=== PATIENT | male | born 1940 | race Caucasian/White ===

== ENCOUNTER 2017-01-02 19:16 | Emergency (ER) | payer MEDICARE ==
--- NOTE | 2017-01-02 19:57 | ERNOTE ---
Head Injury HPI - General Injury to: head Time Seen by Provider: 01/02/17 19:36 Source: patient Exam Limitations: no limitations - Immun/Allergies/Home Medications Immunization: IMMUNIZATION HX Immunizations Up to Date Yes History of Influenza Vaccine No Hx Pneumococcal Vaccination No Allergies/Adverse Reactions: Allergies Allergy/AdvReac Type Severity Reaction Status Date / Time allopurinol Allergy Mild Hives Verified 08/29/15 11:52 amoxicillin trihydrate Allergy Mild ITCHING, Verified 08/29/15 11:52 [From Augmentin] HIVES potassium clavulanate Allergy Mild ITCHING, Verified 08/29/15 11:52 [From Augmentin] HIVES tramadol AdvReac Intermediate SEVERE Verified 08/29/15 11:52 STOMACH PAIN glimepiride AdvReac Mild RASH Verified 08/29/15 11:52 pioglitazone HCl [From Actos] AdvReac Mild Itching Verified 08/29/15 11:52 sitagliptin phosphate AdvReac Mild Itching Verified 08/29/15 11:52 [From Januvia] Home Medications: HOME MEDICATIONS Cinnamon Bark [Cinnamon] 1,000 mg PO DAILY 10/22/14 [Last Taken 01/19/15] Gemfibrozil [Lopid] 600 mg PO BID 10/22/14 [Last Taken 02/07/15] Multivitamin [Multi-Vitamin Daily] 1 tab PO DAILY 02/07/15 [Last Taken 02/07/15] Chlorhex Gl/Isopropyl Alcohol [Hibiclens 4%] 1 appl TP MOWEFR PRN #0 btl [Last Taken Unknown] Cholecalciferol [Vitamin D] 2,000 unit PO DAILY capsule 05/16/15 [Last Taken Unknown] Cyanocobalamin [Vitamin B-12] 2,000 mcg PO DAILY tablet 05/16/15 [Last Taken Unknown] Digoxin [Lanoxin] 125 mcg PO MOWEFR #0 05/16/15 [Last Taken 02/07/15] Gabapentin 300 mg PO HS #0 05/16/15 [Last Taken 02/06/15] Furosemide [Lasix] 20 mg PO DAILY 07/31/15 [Last Taken Unknown] Hydrophilic Ointment [Aquaphilic Ointment] 1 appl TP DAILY 07/31/15 [Last Taken Unknown] Ibuprofen [Motrin] 600 mg PO Q6H PRN 07/31/15 [Last Taken Unknown] Insulin Lispro [Humalog] See Protocol SC AC 07/31/15 [Last Taken Unknown] Iron,Carbonyl/Ascorbic Acid [Vitron-C Tablet] 1 each PO MOWEFRSA 07/31/15 [Last Taken Unknown] Magnesium Oxide [Magnesium] 400 mg PO DAILY 07/31/15 [Last Taken Unknown] Blood Sugar Diagnostic, Drum [Accu-Chek Compact] 1 each MC DAILY 08/29/15 [Last Taken Unknown] Insulin Glargine,Hum.rec.anlog [Lantus] 56 units [facility] 01/02/17 [Last Taken Unknown] - History of Present Illness Narrative: Patient was using a walker and trying to carry groceries through a door that was closing, lost his balance and fell backwards hitting his head on the concrete side walk. He denies any loss of consciousness, needed help to get up. He has a mild headache, as well as pain in his right knee (which he describes as chronic) Occurred: just prior to arrival Location Occurred: home Severity: mild Head Injury Location: occipital Method of Injury: Reports: fell Reason for Fall: Reports: lost balance Loss of Consciousness: Reports: no loss of consciousness Associated Symptoms: Reports: denies symptoms Review of Systems - Review of Systems Constitutional: Absent: recent illness, fever EYE: Absent: vision changes ENT: Absent: nose congestion, sore throat Respiratory: Absent: shortness of breath, cough Cardiology: Absent: chest pain Gastrointestinal/Abdominal: Absent: nausea, vomiting, abdominal pain Musculoskeletal: Present: See HPI, joint pain. Absent: back pain, muscle pain Skin: Absent: rash Neurological: Present: See HPI. Absent: headache, weakness, numbness - Patient's Past Medical History Patient History - Medical: Diabetes Type 2 Insulin Dependent, Renal Failure, Other - subdural bleed after fall 2014 Patient History - Cardiac/Respiratory: Hypertension, Other Patient History - Cancer: No Hx of Cancer Patient History - Surgical Procedures: No surgical history Patient History - Other: None - Family History Mother Family History - Medical: - 52 Family History - Cardiac/Respiratory: Myocardial Infarction Father Family History - Medical: - 84 GI cancer - Social History Living Situations: alone Abuse History: No History of abuse Psych History: No pertinent hx Smoking Status: Former smoker Have you smoked in the past 12 months: No Do you dip or chew tobacco: No Alcohol Use: occasionally - one drink most nights Drug Use: none - Immunizations Immunizations Up to Date: Yes Hx Pneumococcal Vaccination: No History of Influenza Vaccine: No Physical Exam - Physical Exam General Appearance: Present: wd/wn, alert, no apparent distress Eye Exam: Normal inspection: bilateral, PERRL: bilateral Ears, Nose, Throat: Present: normal ENT inspection, normal pharynx, other - small 5mm laceration posterior scalp, currently not bleeding Respiratory: Present: no respiratory distress, normal breath sounds, no accessory muscle use, chest nontender, lungs clear Cardiovascular/Chest: Present: regular rate, rhythm, no murmur Gastrointestinal/Abdominal: Present: normal bowel sounds, nontender, nondistended, soft Back Exam: Present: normal inspection, normal range of motion, no CVA tenderness , no vertebral tenderness Extremity Exam: Present: normal except - - right knee tender to palpation anterior over patellar Neurological Exam: Present: alert, oriented, normal mood/affect, no motor/ sensory deficits Skin Exam: Present: normal color, warm/dry ED Progress - Vital Signs Patient's Vital Signs:: I have reviewed the patient's vital signs. Vital Signs: Vital Signs 01/02/17 19:18 Temperature 35.9 C L Pulse Rate 107 H Respiratory 18 Rate Blood Pressure 159/93 O2 Sat by Pulse 96 Oximetry - X-Ray X-Ray #1 X-Ray: knee - chronic, no acute changes Interpretation: Reviewed by me - CT/Ultrasound CT/Ultrasound Narrative: CT head: no acute findings - Progress/Reassessment Chief Complaint: Fall Progress Note-Subjective: 01/02/17 20:35 discussed results with patient Procedures Head Length of Repair/Wound (cm): 0.5 Wound's Depth/Shape: into subcutaneous Wound Explored: clean Wound Intervention: irrigated w/saline Distal NVT: neuro/vasc intact Wound Repaired With: Dermabond Departure Clinical Impression: Occipital scalp laceration Qualifiers: Encounter type: initial encounter Qualified Code(s): S01.01XA - Laceration without foreign body of scalp, initial encounter Head injury Qualifiers: Encounter type: initial encounter Qualified Code(s): S09.90XA - Unspecified injury of head, initial encounter Right knee sprain Qualifiers: Encounter type: initial encounter Involved ligament of knee: unspecified ligament Qualified Code(s): S83.91XA - Sprain of unspecified site of right knee , initial encounter - Departure Disposition: Home self-care Condition: Good Instructions: Tissue Adhesive Wound Care, [id number], Head Injury, Adult, [id number] Referrals: Antoinette Burns, [Associate] -
[2017-01-02 22:13] VITALS: BP 140/88
== END 2017-01-02 22:00 | disposition home or self-care (01) ==
LOC: ER 19:16
PROC: 0JQ00ZZ Repair Scalp Subcutaneous Tissue and Fascia, Open Approach (ICD-10-PCS; principal; 2017-01-02)
DX: S01.01XA Laceration without foreign body of scalp, initial encounter (principal); S09.90XA Unspecified injury of head, initial encounter; S83.91XA Sprain of unspecified site of right knee, initial encounter; E11.9 Type 2 diabetes mellitus without complications; Z79.4 Long term (current) use of insulin; I10 Essential (primary) hypertension; W18.39XA Other fall on same level, initial encounter; Z91.81 History of falling; Y93.89 Activity, other specified; Y92.007 Garden or yard of unspecified non-institutional (private) residence as the place of occurrence of the external cause; Y99.8 Other external cause status

== ENCOUNTER 2017-02-24 19:55 | Observation (INO) | payer MEDICARE ==
--- NOTE | 2017-02-24 21:11 | ERNOTE ---
Medical Problem HPI - Narrative Date of Service: 02/24/17 - General Chief Complaint: General Assessment Time Seen by Provider: 02/24/17 20:46 Source: patient Exam Limitations: no limitations - Immun/Allergies/Home Medications Immunizations: IMMUNIZATION HX Immunizations Up to Date Yes History of Influenza Vaccine No Hx Pneumococcal Vaccination No Allergies/Adverse Reactions: Allergies allopurinol Allergy (Mild, Verified 02/24/17 20:04) Hives amoxicillin trihydrate [From Augmentin] Allergy (Mild, Verified 02/24/17 20:04) ITCHING, HIVES potassium clavulanate [From Augmentin] Allergy (Mild, Verified 02/24/17 20:04) ITCHING, HIVES tramadol Adverse Reaction (Intermediate, Verified 02/24/17 20:04) SEVERE STOMACH PAIN glimepiride Adverse Reaction (Mild, Verified 02/24/17 20:04) RASH pioglitazone HCl [From Actos] Adverse Reaction (Mild, Verified 02/24/17 20:04) Itching sitagliptin phosphate [From Januvia] Adverse Reaction (Mild, Verified 02/24/17 20:04) Itching Home Medications: HOME MEDICATIONS Cinnamon Bark [Cinnamon] 1,000 mg PO DAILY 10/22/14 [Last Taken 01/19/15] Gemfibrozil [Lopid] 600 mg PO BID 10/22/14 [Last Taken 02/07/15] Multivitamin [Multi-Vitamin Daily] 1 tab PO DAILY 02/07/15 [Last Taken 02/07/15] Chlorhex Gl/Isopropyl Alcohol [Hibiclens 4%] 1 appl TP MOWEFR PRN #0 btl [Last Taken Unknown] Cholecalciferol [Vitamin D] 2,000 unit PO DAILY capsule 05/16/15 [Last Taken Unknown] Cyanocobalamin [Vitamin B-12] 2,000 mcg PO DAILY tablet 05/16/15 [Last Taken Unknown] Digoxin [Lanoxin] 125 mcg PO MOWEFR #0 05/16/15 [Last Taken 02/07/15] Gabapentin 300 mg PO HS #0 05/16/15 [Last Taken 02/06/15] Furosemide [Lasix] 20 mg PO DAILY 07/31/15 [Last Taken Unknown] Hydrophilic Ointment [Aquaphilic Ointment] 1 appl TP DAILY 07/31/15 [Last Taken Unknown] Ibuprofen [Motrin] 600 mg PO Q6H PRN 07/31/15 [Last Taken Unknown] Insulin Lispro [Humalog] See Protocol SC AC 07/31/15 [Last Taken Unknown] Iron,Carbonyl/Ascorbic Acid [Vitron-C Tablet] 1 each PO MOWEFRSA 07/31/15 [Last Taken Unknown] Magnesium Oxide [Magnesium] 400 mg PO DAILY 07/31/15 [Last Taken Unknown] Blood Sugar Diagnostic, Drum [Accu-Chek Compact] 1 each MC DAILY 08/29/15 [Last Taken Unknown] Insulin Glargine,Hum.rec.anlog [Lantus] 56 units [place] [facility] 01/02/17 [Last Taken Unknown] - History of Present History Narrative: Pt. comes in with c/o generalized weakness after grocery shopping at [employer] this afternoon. Pt. was brought in by EMS for LE weakness just prior to arrival. Pt. denies any recent illness fever, dizziness, CP, NVD, dysuria, or any new edema. Pt. has a hx of diabetes and CHF and states that he is slightly SOB at this time. Pt. denies falling with the weakness today or pain anywhere. Review of Systems - Review of Systems Constitutional: Present: weakness. Absent: fever, chills, fatigue, malaise EYE: Present: no symptoms reported ENT: Present: no symptoms reported Respiratory: Present: shortness of breath. Absent: cough, wheezing Cardiology: Present: no symptoms reported. Absent: chest pain, palpitations, edema Gastrointestinal/Abdominal: Present: no symptoms reported. Absent: nausea, vomiting, diarrhea, abdominal pain Genitourinary: Present: no symptoms reported. Absent: frequency, dysuria, hematuria Musculoskeletal: Present: no symptoms reported. Absent: back pain, joint pain Skin: Present: no symptoms reported. Absent: rash, change in hair/nails Neurological: Present: weakness. Absent: headache, dizziness/light-headedness, numbness, tingling All Other Systems: All systems neg except as marked - Patient's Past Medical History Patient History - Medical: Diabetes Type 2 Insulin Dependent, Renal Failure, Other Patient History - Cardiac/Respiratory: Hypertension, Other Patient History - Cancer: No Hx of Cancer Patient History - Surgical Procedures: No surgical history Patient History - Other: None - Family History Mother Family History - Medical: Family History - Cardiac/Respiratory: Myocardial Infarction Father Family History - Medical: - Social History Living Situations: home Abuse History: No History of abuse Psych History: No pertinent hx Smoking Status: Never smoker Alcohol Use: occasionally Drug Use: none - Immunizations Immunizations Up to Date: Yes Hx Pneumococcal Vaccination: No History of Influenza Vaccine: No Physical Exam - Physical Exam General Appearance: Present: wd/wn, alert, no apparent distress Eye Exam: Normal inspection: bilateral, PERRL: bilateral, EOMI: bilateral Ears, Nose, Throat: Present: normal ENT inspection, normal pharynx Neck: Present: normal inspection, nontender. Absent: lymphadenopathy (R), lymphadenopathy (L) Respiratory: Present: no respiratory distress, no accessory muscle use, chest nontender, decreased breath sounds. Absent: rales, rhonchi, wheezing Cardiovascular/Chest: Present: regular rate, rhythm, systolic murmur, other - weak PPP Gastrointestinal/Abdominal: Present: normal bowel sounds, nontender, soft, no organomegaly, distended. Absent: hernia Back Exam: Present: normal inspection, normal range of motion, no CVA tenderness , no vertebral tenderness Extremity Exam: Present: non-tender, normal range of motion, extremity edema - R +4 L +2 Neurological Exam: Present: alert, oriented, normal mood/affect, motor weakness - generalized with resistance Skin Exam: Present: cool/dry, pallor ED Progress - Date and Time Seen: Date and Time: 02/24/17 22:30 Discussed with Brittany and she agrees to accept for observation as pt. is still unexplainably weak. 02/24/17 22:33 - Results and Orders Patient's Lab Results:: I have reviewed the patient's lab results. - Vital Signs Patient's Vital Signs:: I have reviewed the patient's vital signs. Vital Signs: Vital Signs 02/24/17 19:59 Temperature 36.6 C Pulse Rate 98 Respiratory 20 Rate Blood Pressure 125/67 O2 Sat by Pulse 96 Oximetry - X-Ray X-Ray #1 X-Ray: chest Interpretation: Reviewed by me X-ray Comments: no acute - CT/Ultrasound CT/Ultrasound Narrative: CT head with disproportionately enlarged but not acute. - Progress/Reassessment Chief Complaint: General Assessment Progress:: Unchanged Departure - Departure Clinical Impression: Right-sided heart failure, Dehydration, Weakness Diabetes mellitus type 2, controlled Qualifiers: Diabetes mellitus complication status: without complication Diabetes mellitus halfway insulin use: with halfway use Qualified Code(s): E11.9 - Type 2 diabetes mellitus without complications; Z79.4 - termite exterminator (current) use of insulin Disposition: [facility] Condition: Fair
[2017-02-24 21:20] LABS: Hematocrit 34.7 % (42.0-52.0); Mean Cell Volume 85.5 fl (78-100); Mean Corpuscular Hemoglobin 29.6 pg (27-31); Mean Corpuscular Hgb Conc 34.6 g/dl (32-36); Mean Platelet Volume 9.9 fl (6.0-9.5); Neutrophil # 8.1 K/mm3 (1.3-6.0); Neutrophil % 85.8 % (42-75.0); Platelet Count 177 K/mm3 (150-450); Red Blood Count 4.06 M/mm3 (4.7-6.0); Red Cell Distribution Width 13.7 % (11.5-14.0); White Blood Count 9.5 K/mm3 (4.0-10.5)
[2017-02-24 21:28] LABS: Urine Bilirubin Negative (NEGATIVE); Urine Blood Negative /ul (NEGATIVE); Urine Ketone Negative (NEGATIVE); Urine Nitrite Negative (NEGATIVE); Urine Protein Negative (NEGATIVE); Urine Specific Gravity 1.015 SP.GR. (1.005-1.030); Urine Urobilinogen Normal (NORMAL)
[2017-02-24 21:36] LABS: Urine Appearance Clear; Urine Color Yellow
[2017-02-24 21:37] LABS: Urine Bacteria 1+; Urine RBC None Seen /hpf (0-5); Urine WBC None Seen /hpf (0-5)
[2017-02-24 21:42] LABS: ALT 22 U/L (19-67); AST 15 U/L (0-48); Albumin * 3.2 gm/dl (3.4-5.0); Alkaline Phosphatase * 45 U/L (50-170); Anion Gap 16.7 mmol/L (6.8-13.8); BNP * 286 pg/mL (5-650); BUN/Creatinine Ratio 28.9 (9.0-21.6); Bilirubin, Total 0.4 mg/dL (0.0-1.1); Blood Urea Nitrogen 26 mg/dL (6-23); Ca. Corrected For Albumin 9.7 mg/dL (8.4-10.2); Calcium * 9.4 mg/dL (7.9-10.9); Carbon Dioxide 25.5 mmol/L (24-32.6); Chloride 101 mmol/L (97-106); Glucose * 310 mg/dL (70-110); Potassium 4.2 mmol/L (3.4-4.6); Sodium 139 mmol/L (132-142); Total Protein 6.6 gm/dL (6.2-8.2)
[2017-02-24 21:43] LABS: Troponin I Less than 0.017 ng/ml (0.00-0.10)
[2017-02-24] MEDS ORDERED: NORMAL SALINE 1,000 ML IV ONE (21:46)
[2017-02-25 00:17] LABS: Cocaine Ur Negative (NEGATIVE); Urine Barbiturate Negative (NEGATIVE); Urine Benzodiazepines Negative (NEGATIVE); Urine Opiates Negative (NEGATIVE); Urine PCP Negative (NEGATIVE); Urine THC Negative (NEGATIVE)
[2017-02-25 01:01] LABS: Folate 12.1 ng/mL (8.6-58.9); TSH * 0.856 uIU/mL (0.358-3.74)
--- NOTE | 2017-02-25 01:11 | HP ---
Chief Complaint - Chief Complaint Date of Service: 02/24/17 Time of Service: 23:45 Chief Complaint: Weakness lower extremities History of Present Illness: 76 years old male adm to the hospital with reports of sudden onset of weakness to lower extremities. pt stated while at the grocery store parking lot, his legs got extremely weak making it hard for him to stand of walk. He leaned against his truck and as assisted by other customers who then called EMS. He denies alcohol use or drug use,slurred speech, blurred vision, headache, auditory changes, nausea, vomiting, vertigo or LOC. pt stated for the past year he has been using a powered chair and sometimes a walker while ambulating. He his currently been seen by chiropractor who diagnosed him with vertebral misalignment. He his schedule for out-pt physical therapy BID weekly. He have history of frequent falls, last incident was 2 months ago when he fell and hit his head. On this incident he denies head injury and had CT head done at the time. In ER CT head : No acute intra-cranial abnormality. Mild disproportionate ventricle enlargement, relative to the degree of cortical atrophy. EKG- NSR. PMH significant for frequent falls, diabetes, CHF, CKD, COPD, HDL and venous stasis. Plan of care discussed with pt he verbalized understanding and agrees. - Patient's Past Medical History Patient History - Medical: Diabetes Type 2 Insulin Dependent, Osteoarthritis, Renal Disease, Renal Failure, Other - venous stasis, obesity Patient History - Cardiac/Respiratory: CHF, COPD, Hypertension, Hyperlipidemia, Other Patient History - Cancer: No Hx of Cancer Patient History - Surgical Procedures: No surgical history Patient History - Other: None - Family History Mother Family History - Medical: Family History - Cardiac/Respiratory: Myocardial Infarction Father Family History - Medical: - Social History Living Situations: alone Abuse History: No History of abuse Psych History: No pertinent hx Smoking Status: Former smoker Have you smoked in the past 12 months: No Smoking Start Date: 02/26/1956 Smoking Stop Date: 02/25/71 Alcohol Use: occasionally Drug Use: none - Immunizations Immunizations Up to Date: Yes Hx Pneumococcal Vaccination: No History of Influenza Vaccine: No Review Of Systems (GEN) - Review of Systems Generalized/Overall Review: Present: Weakness - BLLE EENTM: Present: Other - Poor dentition Respiratory: Present: No Symptoms Reported Cardiac: Present: No Symptoms Reported Abdominal: Present: No Symptoms Reported Genitourinary: Present: Frequency Musculoskeletal: Present: Other - BLLE weakness Neurological: Present: Weakness Skin: Present: No Symptoms Reported Endocrine: Present: No Symptoms Reported Allergies/Adverse Reactions: Allergies Allergy/AdvReac Type Severity Reaction Status Date / Time allopurinol Allergy Mild Hives Verified 02/25/17 00:44 amoxicillin trihydrate Allergy Mild ITCHING, Verified 02/25/17 00:44 [From Augmentin] HIVES potassium clavulanate Allergy Mild ITCHING, Verified 02/25/17 00:44 [From Augmentin] HIVES tramadol AdvReac Intermediate SEVERE Verified 02/25/17 00:44 STOMACH PAIN glimepiride AdvReac Mild RASH Verified 02/25/17 00:44 pioglitazone HCl [From Actos] AdvReac Mild Itching Verified 02/25/17 00:44 sitagliptin phosphate AdvReac Mild Itching Verified 02/25/17 00:44 [From Januvia] Home Medications: HOME MEDICATIONS Cinnamon Bark [Cinnamon] 1,000 mg PO DAILY 10/22/14 [Last Taken 02/24/17] Gemfibrozil [Lopid] 600 mg PO BID 10/22/14 [Last Taken 02/07/15] Multivitamin [Multi-Vitamin Daily] 1 tab PO DAILY 02/07/15 [Last Taken 02/24/17] Chlorhex Gl/Isopropyl Alcohol [Hibiclens 4%] 1 appl TP MOWEFR PRN #0 btl [Last Taken Unknown] Cholecalciferol [Vitamin D] 2,000 unit PO DAILY capsule 05/16/15 [Last Taken Unknown] Digoxin [Lanoxin] 125 mcg PO MOWEFR #0 05/16/15 [Last Taken 02/07/15] Gabapentin 300 mg PO HS #0 05/16/15 [Last Taken 02/06/15] Furosemide [Lasix] 20 mg PO DAILY 07/31/15 [Last Taken Unknown] Hydrophilic Ointment [Aquaphilic Ointment] 1 appl TP DAILY 07/31/15 [Last Taken 02/24/17] Blood Sugar Diagnostic, Drum [Accu-Chek Compact] 1 each MC DAILY 08/29/15 [Last Taken 02/24/17] Insulin Glargine,Hum.rec.anlog [Lantus] 56 units SC QAM 01/02/17 [Last Taken 09/02] Insulin Aspart [Novolog] 18 units SC TID 02/25/17 [Last Taken 02/24/17 08:00] Exam - Exam Vital Signs: Vital Signs - Last Taken Temp 36.5 C 02/24/17 22:47 Pulse 97 02/24/17 22:47 Resp 22 H 02/24/17 22:47 BP 140/74 02/24/17 22:47 Pulse Ox 99 02/24/17 22:47 Constitutional: Present: Alert, Oriented x3, Cooperative, No distress, Elderly ENT Exam: Present: moist mucous membranes, other - poor dentition Eye Exam: bilateral eye: PERRL Neck: Present: full range of motion Back Exam: Present: normal inspection Respiratory: Present: chest non-tender, lungs clear Cardiovascular/Chest: Present: normal peripheral pulses, regular rate, rhythm, no chest tenderness, no gallop, tachycardia Peripheral Pulses: dorsalis-pedis (R): 2+, dorsalis-pedis (L): 2+ Abdomen: Present: Normal bowel sounds, soft, nontender, nondistended, no rebound tenderness /Rectal: Present: Exam deferred Extremity: Present: normal range of motion, non-tender, normal inspection Skin Exam: Present: normal color, warm/dry, no cyanosis Lymphatic: Present: no adenopathy Neurologic: Present: oriented x 3 Appearance: Present: appropriate appearance Eye contact: Present: cooperative, good eye contact Diagnostic Studies: Laboratory Results WBC 9.5 K/mm3 (4.0-10.5) 02/24/17 21:20 RBC 4.06 M/mm3 (4.7-6.0) L 02/24/17 21:20 Hgb 12.0 gm/dL (13.5-18.0) L 02/24/17 21:20 Hct 34.7 % (42.0-52.0) L 02/24/17 21:20 MCV 85.5 fl (78-100) 02/24/17 21:20 MCH 29.6 pg (27-31) 02/24/17 21:20 MCHC 34.6 g/dl (32-36) 02/24/17 21:20 RDW 13.7 % (11.5-14.0) 02/24/17 21:20 Plt Count 177 K/mm3 (150-450) 02/24/17 21:20 MPV 9.9 fl (6.0-9.5) H 02/24/17 21:20 Immature Gran % (Auto) 0.50 % (0.001-0.429) H 02/24/17 21:20 Immature Gran # (Auto) 0.05 K/mm3 (0.000-0.0310) H 02/24/17 21:20 Neutrophils % 85.8 % (42-75.0) H 02/24/17 21:20 Lymphocytes % 7.6 % (20-51) L 02/24/17 21:20 Monocytes % 6.0 % (0.0-9) 02/24/17 21:20 Eosinophils % 0.0 % (0.0-3.0) 02/24/17 21:20 Basophils % 0.1 % (0.0-1.0) 02/24/17 21:20 Nucleated RBC % 0.0 k/mm3 (0-1) 02/24/17 21:20 Neutrophils # 8.1 K/mm3 (1.3-6.0) H 02/24/17 21:20 Lymphocytes # 0.7 k/mm3 (1.5-3.5) L 02/24/17 21:20 Monocytes # 0.6 k/mm3 (0.0-1.0) 02/24/17 21:20 Eosinophils # 0.0 k/mm3 (0.0-0.7) 02/24/17 21:20 Absolute Basophils 0.0 k/mm3 (0.0-0.1) 02/24/17 21:20 Sodium 139 mmol/L (132-142) 02/24/17 21:20 Plasma Sodium 142 mmol/L (130-142) 02/24/17 21:20 Potassium 4.2 mmol/L (3.4-4.6) 02/24/17 21:20 Chloride 101 mmol/L (97-106) 02/24/17 21:20 Carbon Dioxide 25.5 mmol/L (24-32.6) 02/24/17 21:20 Anion Gap 16.7 mmol/L (6.8-13.8) H 02/24/17 21:20 BUN 26 mg/dL (6-23) H 02/24/17 21:20 Creatinine 0.90 mg/dL (0.4-1.4) 02/24/17 21:20 Est GFR (Non-Af Amer) 87 mL/min (60-130) 02/24/17 21:20 BUN/Creatinine Ratio 28.9 (9.0-21.6) H 02/24/17 21:20 Random Glucose 310 mg/dL (70-110) H 02/24/17 21:20 Lactic Acid, Venous 2.2 mmol/L (0.4-1.9) H* 02/24/17 21:20 Calcium 9.4 mg/dL (7.9-10.9) 02/24/17 21:20 Calcium Adj for Albumin 9.7 mg/dL (8.4-10.2) 02/24/17 21:20 Total Bilirubin 0.4 mg/dL (0.0-1.1) 02/24/17 21:20 AST 15 U/L (0-48) 02/24/17 21:20 ALT 22 U/L (19-67) 02/24/17 21:20 Alkaline Phosphatase 45 U/L (50-170) L 02/24/17 21:20 Troponin I Less than 0.017 ng/ml (0.00-0.10) 02/24/17 21:20 B-Natriuretic Peptide 286 pg/mL (5-650) 02/24/17 21:20 Total Protein 6.6 gm/dL (6.2-8.2) 02/24/17 21:20 Albumin 3.2 gm/dl (3.4-5.0) L 02/24/17 21:20 Urine Color Yellow 02/24/17 21:05 Urine Appearance Clear 02/24/17 21:05 Urine pH 6.0 pH (5.0-7.0) 02/24/17 21:05 Ur Specific [place] 1.015 SP.GR. (1.005-1.030) 02/24/17 21:05 Urine Protein Negative mg/dL (NEGATIVE) 02/24/17 21:05 Urine Glucose (UA) >=1000 mg/dL (NEGATIVE) H 02/24/17 21:05 Urine Ketones Negative mg/dL (NEGATIVE) 02/24/17 21:05 Urine Blood Negative /ul (NEGATIVE) 02/24/17 21:05 Urine Nitrate Negative (NEGATIVE) 02/24/17 21:05 Urine Bilirubin Negative mg/dl (NEGATIVE) 02/24/17 21:05 Urine Urobilinogen Normal EU/dl (NORMAL) 02/24/17 21:05 Ur Leukocyte Esterase Negative /ul (NEGATIVE) 02/24/17 21:05 Urine RBC None seen /hpf (0-5) 02/24/17 21:05 Urine WBC None seen /hpf (0-5) 02/24/17 21:05 Ur Epithelial Cells None seen /hpf (0-5) 02/24/17 21:05 Urine Bacteria 1+ (NONE) H 02/24/17 21:05 Urine Culture Comments Culture to follow 02/24/17 21:05 Urine Opiates Screen Negative (NEGATIVE) 02/24/17 23:57 Barbiturate Screen Negative (NEGATIVE) 02/24/17 23:57 Ur Phencyclidine Scrn Negative (NEGATIVE) 02/24/17 23:57 Urine Amphetamine Negative (NEGATIVE) 02/24/17 23:57 U Benzodiazepines Scrn Negative (NEGATIVE) 02/24/17 23:57 Urine Cocaine Screen Negative (NEGATIVE) 02/24/17 23:57 Urine Marijuana (THC) Negative (NEGATIVE) 02/24/17 23:57 Serum Ketones Negative (NEGATIVE) 02/24/17 21:20 Assessment/Plan - Narrative Narrative: Weakness to BLLE CRP/ ERS pending Follow up with Physical therapy and go for schedule appointments. Vit B12, ferritin pending Drug urine toxicology negative On adm Lactic acid 2.2--->1.2 Continue on telemetry On adm EKG- NSR Diabetes On adm BG 310 Accu-check and low dose SSI Consistent carb diet May resume home dose of medications COPD- stable Resume home hinson of medications Hypertension Resume home dose of medications Monitor vital signs daily and PRN as indicated CKD On adm BUN/ Cre 26/0.29, pt is at baseline CHF- stable Resume home dose of medication when meds list become available Code status: DNR, Jehovah witness no blood products VTE ppx; ambulate and SCD Anticipate discharge home 0-2 days Time 38 minutes and previous chart reviewed. - Assessment/Plan (1) Weakness Problem: Acute (2) Dehydration Problem: Acute (3) Diabetes mellitus type 2, controlled Problem: Chronic Qualifiers: Diabetes mellitus complication status: without complication Diabetes mellitus terminal supervisor insulin use: with terminal supervisor use Qualified Code(s): E11.9 - Type 2 diabetes mellitus without complications; Z79.4 - bed bug exterminator (current) use of insulin (4) Renal failure Problem: Chronic Qualifiers: Renal failure chronicity: chronic Chronic kidney disease stage: stage 3 ( moderate) Qualified Code(s): N18.3 - Chronic kidney disease, stage 3 (moderate )
[2017-02-25] MEDS ORDERED: ACETAMINOPHEN 325 MG TABLET PO PRN (08:54)
--- NOTE | 2017-02-25 13:01 | DS ---
(1) Fall from ground level Problem: Acute (2) Obesity Diagnosis(s): BMI-38.0 Problem: Chronic Qualifiers: Obesity type: unspecified obesity type (3) Diabetes type 2, uncontrolled Problem: Chronic Qualifiers: Diabetes mellitus complication status: with hyperglycemia Description of Stay: DATE OF ADMISSION: 02/25/2017. DATE OF DISCHARGE: 02/25/2017. DIAGNOSTICS: CT HEAD W/O: 02/24/2017. DISCHARGE SUMMARY: Adolph Ireland is a 76-year-old WM with a H/O HTN, HLD, PAF, T2DM, FLORA, OA, chronic lower extremity edema who apparently fell on his side while attempting to get into his truck w/o LOC on 02/24/2017. He was evaluated in the ER and underwent a CT of head W/O. Findings included age-related cortical atrophy and periventricular white matter chronic ischemic changes; mild disproportionate ventricular enlargement related to the degree of cortical atrophy [correlate for NPH]; trace LT mastoid air cell effusion; posterior scalp soft tissue swelling. Patient was admitted into observation. He was already scheduled for PT on as an outpatient. He was able to ambulate with a walker w/o problems. He was discharged in a stable condition with follow-up with PCP. Procedures Performed: none Results and Findings: Laboratory Tests 02/24/17 21:20 WBC 9.5 Hgb 12.0 L Hct 34.7 L Plt Count 177 02/24/17 21:20 Plasma Sodium 142 Potassium 4.2 Chloride 101 Carbon Dioxide 25.5 Glucose 310 BUN 26 H Creatinine 0.90 Est GFR (Non-Af Amer) 87 Calcium Adj for Albumin 9.7 Total Bilirubin 0.4 AST 15 ALT 22 Alkaline Phosphatase 45 L Total Protein 6.6 Albumin 3.2 L 02/24/17 21:20 Lactic Acid, Venous 2.2 H* Troponin I <0.017 C-Reactive Prot, Quant 1.7 H B-Natriuretic Peptide 286 Vitamin B12 351 TSH 0.0856 Discharge Disposition: Home self care Disposition: Home self-care Condition: Undetermined Discharge Activity: Activity as tolerated Discharge Diet: Consistent carbs, Low fat/chol, High Fiber Problem Oriented Discharge Instructions to Patient/Family: Dehydration, Adult, [id number], CHF Patient Instructions Additional Patient Instructions (free text): Patient ambulate with a walker or cane at all times. Fall precautions. Appointment Dr. Burns ([phone]) 03/04/17 at 11.00 am Critical [facility] hospital. Please call and fax upon discharge. Complete Home Medications List: Complete Home Medication List: Cinnamon Bark [Cinnamon] 1,000 mg PO DAILY 10/22/14 Gemfibrozil [Lopid] 600 mg PO BID 10/22/14 Multivitamin [Multi-Vitamin Daily] 1 tab PO DAILY 02/07/15 Cholecalciferol [Vitamin D] 2,000 unit PO DAILY capsule 05/16/15 Digoxin [Lanoxin] 125 mcg PO MOWEFR #0 05/16/15 Furosemide [Lasix] 20 mg PO DAILY 07/31/15 Hydrophilic Ointment [Aquaphilic Ointment] 1 appl TP DAILY 07/31/15 Blood Sugar Diagnostic, Drum [Accu-Chek Compact] 1 each MC DAILY 08/29/15 Acetaminophen [Tylenol] 500 mg PO BID PRN 02/25/17 Fluticasone Propionate [Flonase] 1 spray NS DAILY 02/25/17 Gabapentin 300 mg PO BID 02/25/17 Insulin Aspart [Novolog] 18 units SC TID 02/25/17 Insulin Glargine,Hum.rec.anlog [Lantus] 56 units SC HS 02/25/17 Losartan Potassium [Cozaar] 75 mg PO DAILY 02/25/17 [place]-3/Dha/Epa/Fish Oil [[place] 3 500 Softgel] 1 each PO BID 02/25/17
[2017-02-25 14:38] VITALS: BP 152/72
== END 2017-02-25 18:55 | disposition home or self-care (01) ==
LOC: ER 19:55 → MS 22:44
PROVIDERS: ADMIT Nurse Practitioner; ATTEND Internal Medicine
DX: E86.0 Dehydration (principal); R53.1 Weakness; E11.9 Type 2 diabetes mellitus without complications; Z79.4 Long term (current) use of insulin; I12.9 Hypertensive chronic kidney disease with stage 1 through stage 4 chronic kidney disease, or unspecified chronic kidney disease; N18.3 Chronic kidney disease, stage 3 (moderate); Z87.891 Personal history of nicotine dependence; J44.9 Chronic obstructive pulmonary disease, unspecified; I50.9 Heart failure, unspecified; E78.5 Hyperlipidemia, unspecified; I87.8 Other specified disorders of veins
CPT/HCPCS: 36415; 70450; 71020; 80053; 80307; 81001; 82009; 82607; 82728; 82746; 83605; 83880; 84443; 84484; 85025; 85652; 86140; 87040; 87086; 93005; 96360; 97116; 97161; 97530; 99283; G0378; G8978; G8979; G8980